=== PATIENT | male | born 1970 | race Caucasian/White ===

== ENCOUNTER 2018-06-08 10:35 | Emergency (ER) | payer OTHER ==
--- NOTE | 2018-06-08 10:56 | PHYS DOC ---
Past History Past Medical History: No Pertinent History Past Surgical History: No Surgical History Smoking: Non-smoker Additional Alcohol Information: Stopped drinking alcohol in 2008 Drug Use: None Adult General Chief Complaint Chief Complaint: MULTIPLE COMPLAINTS [facility] Patient is a 47 year old male who presents with chest discomfort. This started approximately 3 days ago. Left upper chest. Sharp in nature. No worse with exertion. No worse with respiration. Patient has been feeling weaker for the past several weeks. No nausea or vomiting. No diaphoresis. No fever or chills or cough. Nothing seems to make the discomfort better or worse. Pain is mild, at worst a 2 out of 10 [] Review of Systems Review of Systems Constitutional: Denies fever or chills [] Eyes: Denies change in visual acuity, redness, or eye pain [] HENT: Denies nasal congestion or sore throat [] Respiratory: Denies cough or shortness of breath [] Cardiovascular: No additional information not addressed in HPI [] GI: Denies abdominal pain, nausea, vomiting, bloody stools or diarrhea [] : Denies dysuria or hematuria [] Musculoskeletal: Denies back pain or joint pain [] Integument: Denies rash or skin lesions [] Neurologic: Denies headache, focal weakness or sensory changes [] Endocrine: Denies polyuria or polydipsia [] All other systems were reviewed and found to be within normal limits, except as documented in this note. Allergies Allergies Allergies Coded Allergies Type Severity Reaction Last Updated Verified No Known Drug Allergies 06/08/18 No Physical Exam Physical Exam Constitutional: Well developed, well nourished, no acute distress, non-toxic appearance. [] HENT: Normocephalic, atraumatic, bilateral external ears normal, oropharynx moist, no oral exudates, nose normal. [] Eyes: PERRLA, EOMI, conjunctiva normal, no discharge. [] Neck: Normal range of motion, no tenderness, supple, no stridor. [] Cardiovascular:Heart rate regular rhythm, no murmur [] Lungs & Thorax: Bilateral breath sounds clear to auscultation [] Abdomen: Bowel sounds normal, soft, no tenderness, no masses, no pulsatile masses. [] Skin: Warm, dry, no erythema, no rash. [] Back: No tenderness, no CVA tenderness. [] Extremities: No tenderness, no cyanosis, no clubbing, ROM intact, no edema. [] Neurologic: Alert and oriented X 3, normal motor function, normal sensory function, no focal deficits noted. [] Psychologic: Affect normal, judgement normal, mood normal. [] EKG EKG EKG shows sinus rhythm at 49 bpm, left axis at -28, QTC of 393 ms, no ST elevations, no old EKG is available for comparison.[] Radiology/Procedures Radiology/Procedures Chest, PA and Lateral: Technique: PA and lateral views of the chest were obtained. History: Chest pressure for 3 days. Comparison: None. Findings: Low lung volumes accentuate heart size and pulmonary vascularity. Minimal bibasilar lung airspace opacity likely atelectasis or infiltrates. Mild prominent bilateral interstitial lung markings. IMPRESSION: 1. Mild prominent bilateral interstitial lung markings likely congestive changes. 2.Minimal bibasilar lung airspace opacities likely atelectasis or infiltrates.[] Course & Med Decision Making Course & Med Decision Making Pertinent Labs and Imaging studies reviewed. (See chart for details) ED course: Patient arrived, was placed in bed, tolerated exam well. After the return of lab and imaging findings, these were discussed with the patient voiced understanding. All questions were answered. Patient was discharged in improved condition. Medical decision making: This does not appear to be an acute coronary syndrome, no evidence of pneumonia, pneumothorax, pulmonary embolism, thoracic aortic dissection, nor esophageal rupture.[] Dragon Disclaimer Dragon Disclaimer This electronic medical record was generated, in whole or in part, using a voice recognition dictation system. Departure Departure: Impression: Primary Impression: Chest pain Disposition: HOME, SELF-CARE Condition: GOOD Referrals: PCP,UNKNOWN (PCP) Patient Instructions: Chest Pain (Nonspecific) Additional Instructions: Follow-up with your primary care team in 2 days. Return to the ER if worsening chest discomfort, difficulty breathing, you develop a fever, or any other concerns Scripts Meloxicam (MELOXICAM) 7.5 Mg Tablet 7.5 MG PO DAILY for PAIN, #20 TAB Prov: SADE VIEIRA DO 06/08/18 Problem Qualifiers Primary Impression: Chest pain Chest pain type: unspecified Qualified Codes: R07.9 - Chest pain, unspecified SADE VIEIRA DO Jun 08, 2018 10:56
[2018-06-08] MEDS ORDERED: ASPIRIN 81 MG TAB.CHEW PO ONE (11:00)
[2018-06-08 11:22] LABS: BASO # 0.1 x10^3/uL (0.0-0.2); BASO % 1 % (0-3); EOS # 0.2 x10^3/uL (0.0-0.7); EOS % 2 % (0-3); HEMATOCRIT 49.4 % (39.0-53.0); LYMPH # 1.9 x10^3/uL (1.0-4.8); LYMPH % 22 % (24-48); MEAN CORPUSCULAR HEMOGLOBIN 31 pg (25-35); MEAN CORPUSCULAR HGB CONC 34 g/dL (31-37); MEAN CORPUSCULAR VOLUME 90 fL (79-100); MONO # 0.8 x10^3/uL (0.0-1.1); MONO % 10 % (0-9); NEUT # 5.6 x10^3uL (1.8-7.7); NEUT % 66 % (31-73); PLATELET COUNT 221 x10^3/uL (140-400); RED BLOOD COUNT 5.49 x10^6/uL (4.30-5.70); RED CELL DISTRIBUTION WIDTH 13.2 % (11.5-14.5); WHITE BLOOD COUNT 8.5 x10^3/uL (4.0-11.0)
[2018-06-08 11:40] LABS: ALBUMIN 4.3 g/dL (3.4-5.0); ALBUMIN/GLOBULIN RATIO 1.5 (1.0-1.7); CALCIUM 9.1 mg/dL (8.5-10.1); CREATININE 1.1 mg/dL (0.7-1.3); GFR 71.4; MAGNESIUM 1.9 mg/dL (1.8-2.4); POTASSIUM 4.2 mmol/L (3.5-5.1); TOTAL PROTEIN 7.2 g/dL (6.4-8.2)
--- NOTE | 2018-06-08 11:45 | RAD ---
Chest, PA and Lateral: Technique: PA and lateral views of the chest were obtained. History: Chest pressure for 3 days. Comparison: None. Findings: Low lung volumes accentuate heart size and pulmonary vascularity. Minimal bibasilar lung airspace opacity likely atelectasis or infiltrates. Mild prominent bilateral interstitial lung markings. IMPRESSION: 1. Mild prominent bilateral interstitial lung markings likely congestive changes. 2.Minimal bibasilar lung airspace opacities likely atelectasis or infiltrates. Electronically signed by: Kaleb Gonsalves MD (06/08/2018 11:41 AM) [id number]
[2018-06-08 11:58] VITALS: BP 138/93
[2018-06-08] MEDS ORDERED: MELO7.5T29 PO (12:06)
--- NOTE | 2018-06-08 17:32 | EKG ---
[address] [address] Test Date: 2018-06-08 Test Time: 11:01:41 Pat Name: ULYSSES HORVATH Department: Room: Gender: M Hoister: EDGARDO : 1970 Requested By: SADE VIEIRA Order Number: [id number] Reading MD: Measurements Intervals [place] Rate: 49 P: 0 TN: 142 QRS: -28 QRSD: 96 T: -14 QT: 436 QTc: 393 Interpretive Statements SINUS BRADYCARDIA LEFTWARD AXIS QRS(T) CONTOUR ABNORMALITY CONSIDER ANTEROSEPTAL MYOCARDIAL DAMAGE CONSIDER INFERIOR MYOCARDIAL DAMAGE T ABNORMALITY IN ANTERIOR LEADS ABNORMAL ECG RI6.01 Unconfirmed report No previous ECG available for comparison
== END 2018-06-08 12:18 | disposition home or self-care (01) ==
LOC: ER 10:35
DX: R07.89 Other chest pain (principal)
CPT/HCPCS: 36415; 71046; 80053; 83690; 83735; 83880; 84484; 85025; 85379; 85610; 93005; 99284